=== PATIENT | female | born 1930 | race Caucasian/White ===

== ENCOUNTER 2020-06-20 08:48 | Outpatient (CLI) | payer MEDICARE, OTHER ==
[2020-06-20 10:24] LABS: Hemoglobin 13.7 g/dL (12.0-15.5); Mean Corpuscular HGB CONC 32.2 g/dL (32.0-36.0); Mean Corpuscular Hemoglobin 30.2 pg (27.0-33.0); Mean Corpuscular Volume 93.6 fl (81.6-98.3); Mean Platelet Volume 11.5 fl (7.4-10.4); Platelet Count 156 10x3/uL (150-450); RBC Distribution Width 18.5 % (11.5-14.5); Red Blood Cell (RBC) Count 4.54 10x6/uL (3.90-5.03); White Blood Cell (WBC) Count 24.2 10x3/uL (3.5-10.5)
[2020-06-20 10:38] LABS: Anion Gap 14 mmol/L (10-20); BUN (Urea Nitrogen) 13 mg/dL (9.8-20.1); Calc. Creatinine Clearance 0 mL/min (70-130); Carbon Dioxide 28 mmol/L (23-31); Chloride 103 mmol/L (98-107); Glucose 91 mg/dL (83-110); Potassium 4.4 mmol/L (3.5-5.1); Sodium 141 mmol/L (136-145)
[2020-06-21 02:03] LABS: SARS-CoV-2 PCR by NAA Not Detected (NotDetected)
== END 2020-06-20 08:49 | disposition home or self-care (01) ==
LOC: CSHLAB 08:48
PROVIDERS: ATTEND Surgery
DX: Z01.812 Encounter for preprocedural laboratory examination (principal); Z20.822 Contact with and (suspected) exposure to COVID-19; K80.01 Calculus of gallbladder with acute cholecystitis with obstruction; C91.90 Lymphoid leukemia, unspecified not having achieved remission
CPT/HCPCS: 80048; 85027; 87635; U0003; U0005

== ENCOUNTER 2020-06-22 06:08 | Day surgery (SDC) | payer MEDICARE, OTHER ==
[2020-06-21 09:28] VITALS: BMI 19.4
[2020-06-22] MEDS ORDERED: Lidocaine 1% MPF 2 ML VIAL ONE (06:15)
[2020-06-22] MEDS ORDERED: PROPOFOL 20 ML ONE (07:34)
[2020-06-22] MEDS ORDERED: Fentanyl 100 MCG/2 ML VIAL ONE (07:34)
[2020-06-22] MEDS ORDERED: Midazolam HCl 2 mg/2 ml Vial ONE (07:34)
[2020-06-22] MEDS ORDERED: Dexamethasone 4 mg/ml Vial ONE (07:35)
[2020-06-22] MEDS ORDERED: Lidocaine 1% PF 5 ML VIAL ONE (07:35)
[2020-06-22] MEDS ORDERED: Glycopyrrolate 0.2 MG/ML 5 ML SYRINGE ONE (07:35)
[2020-06-22] MEDS ORDERED: Ondansetron PF 4 MG/2 ML Vial ONE (07:35)
[2020-06-22] MEDS ORDERED: Rocuronium Bromide 10 MG/ML (10ML VIAL) ONE (07:35)
[2020-06-22] MEDS ORDERED: Bupivacaine PF 0.5% 30 ML VIAL ONE (08:10)
[2020-06-22] MEDS ORDERED: EPINEPHrine 1 mg/ml MDV (1ml Charge) ONE (08:10)
[2020-06-22] MEDS ORDERED: HYDROcodone/Acetaminophen 5/325 mg Tablet PO PRN (09:00)
== END 2020-06-22 11:07 | disposition home or self-care (01) ==
LOC: CSHSDC 06:08
PROVIDERS: ATTEND Surgery
PROC: 0FT44ZZ Resection of Gallbladder, Percutaneous Endoscopic Approach (ICD-10-PCS; principal; 2020-06-22)
DX: K80.12 Calculus of gallbladder with acute and chronic cholecystitis without obstruction (principal); C91.90 Lymphoid leukemia, unspecified not having achieved remission; I10 Essential (primary) hypertension; E78.5 Hyperlipidemia, unspecified; I25.10 Atherosclerotic heart disease of native coronary artery without angina pectoris; I73.9 Peripheral vascular disease, unspecified; Z90.710 Acquired absence of both cervix and uterus; Z95.0 Presence of cardiac pacemaker; Z79.899 Other long term (current) drug therapy; Z79.82 Long term (current) use of aspirin; Z87.891 Personal history of nicotine dependence
CPT/HCPCS: 88304; J0171; J1100; J2250; J2405; J2704; J3010; J3490; S0020